=== PATIENT | male | born 1970 | race Two or more races ===

== ENCOUNTER 2016-10-09 11:13 | Emergency (ER) | payer SELFPAY ==
[~2016-10-09] VITALS: Ht 177.8 cm; Wt 70.3 kg
--- NOTE | 2016-10-09 15:31 | Emergency Room Report ---
History of Present Illness General Chief Complaint: Alcohol Intoxication Source: EMS Present Illness HPI This patient is brought in by EMS. This patient is homeless and has a history of alcohol abuse. He regularly presents to this hospital alcohol intoxication. Per EMS, they brought him to [facility] 2 days ago with alcohol intoxication. EMS report they know him really well. They state they try to switch between here at [facility] in [facility] to drop him off. Allergies: Coded Allergies: UNABLE TO ASSESS (Unverified , 10/09/16) Patient History Past Medical History: see triage record, other - ETOH intoxication Social History: Reports: alcohol use Reviewed Nursing Documentation: PMH: Agreed, PSxH: Agreed Nursing Documentation-PMH Past Medical History: Deferred Review of Systems All Other Systems: limited Physical Exam Vital Signs Date Time Temp Pulse Resp B/P Pulse Ox O2 Delivery O2 Flow Rate FiO2 10/09/16 11:05 97.9 18 18 121/68 99 Room Air Sp02 EP Interpretation: reviewed, normal General Appearance: no apparent distress, non-toxic, Stupor Head: normocephalic, other - periorbital ecchymosis L kory-orbital skin with different colors c/w healing/old wound. Eyes: bilateral eye PERRL, bilateral eye normal inspection ENT: hearing grossly normal, normal pharynx, no angioedema Neck: full range of motion Respiratory: chest non-tender, lungs clear, normal breath sounds, speaking full sentences Cardiovascular #1: regular rate, rhythm, no edema Gastrointestinal: normal bowel sounds, soft, non-distended Rectal: deferred Musculoskeletal: normal range of motion, non-tender Neurologic: sensory intact, other - obtunded. Non-focal. Occassional moves all extremities appropriately. Sits up. Pulls sheets over his head. Refuses to give name. Skin: warm/dry, well hydrated, other - See HEENT exam Medical Decision Making Diagnostic Impression: Primary Impression: SDH (subdural hematoma) Additional Impressions: Alcohol abuse Alcohol intoxication ER Course This patient is well-known to [facility]. He is a homeless male who presents with alcohol intoxication. Initially I had planned on living this patient sleep off his alcohol. However, further evaluation and shows some evidence of ecchymoses that is within the last few days on his face. Therefore , I did obtain a head CT. There is evidence of a small subacute subdural hemorrhage. The patient overall is nonfocal on neurologic exam and moving all extremities with well-oriented movements. However, he is obtunded and intoxicated. He will be admitted for monitoring. Laboratory workup is pending at time of this dictation. This patient is turned over to Dr. Tavares. Please see his addendum. See chart for labs. CT/MRI/US Diagnostic Results CT/MRI/US Diagnostic Results : Imaging Test Ordered: CT head Impression Impression: Positive for small left parietal convexity subacute subdural hematoma this measures 4 mm in thickness, does not result in any significant mass effect. Frontal cortical volume loss, somewhat advanced for age. Correlate with clinical history No significant mass effect or edema. Sinus disease. Evidence of prior sinus surgery Critical value findings discussed by phone with Dr. Martinez at the time of interpretation Last Vital Signs Date Time Temp Pulse Resp B/P Pulse Ox O2 Delivery O2 Flow Rate FiO2 10/09/16 11:05 97.9 18 18 121/68 99 Room Air Disposition: ADMITTED INPATIENT Condition: Stable Referrals: NOT CHOSEN TOAN/,REFERRING (PCP) MEME MARTINEZ D.O. Oct 09, 2016 15:31
--- NOTE | 2016-10-09 16:42 | Diagnostic Imaging Report ---
Indications: Altered metal status, history of head trauma Technique: Spiral acquisitions obtained through the brain. Angled axial and coronal 5 x 5 mm slices were reconstructed. Total dose length product 1004 and 60 mGycm. CTDI vol(s) 70 mGy Comparison: None Findings: There is slight widening of the extra-axial CSF spaces in the bilateral frontal regions. Best visible on the coronal views, there is suggestion of a 4 mm thick subdural hematoma in the high left parietal convexity. This is slightly higher attenuation than CSF, lower in attenuation than whelan matter. This does not cause any significant mass effect Ventricles and extra-axial CSF spaces otherwise within normal limits. No evidence of significant extra cranial soft tissue injury. Intact calvarium area visualized orbits are unremarkable. There is bilateral sinus disease. There is evidence of prior right maxillary sinus surgery. Impression: Positive for small left parietal convexity subacute subdural hematoma this measures 4 mm in thickness, does not result in any significant mass effect. Frontal cortical volume loss, somewhat advanced for age. Correlate with clinical history No significant mass effect or edema. Sinus disease. Evidence of prior sinus surgery Critical value findings discussed by phone with Dr. Park at the time of interpretation The CT scanner at [facility] is accredited by the [employer] and the scans are performed using protocols designed to limit radiation exposure to as low as reasonably achievable to attain images of sufficient resolution adequate for diagnostic evaluation.
[2016-10-09] MEDS ORDERED: levETIRAcetam 500 MG in D5W 110 ML IVPB ONE (16:45)
[2016-10-09] MEDS ORDERED: levETIRAcetam 500mg vial IV ONE (17:19)
[2016-10-09 17:55] LABS: BASOPHILS % (AUTO) 0.8 % (0.0-2.0); LYMPHOCYTES % (AUTO) 46.7 % (20.0-45.0); MEAN CORPUSCULAR HEMOGLOBIN 35.6 PG (27.0-31.0); MEAN CORPUSCULAR HGB CONC 34.9 G/DL (32.0-36.0); MEAN CORPUSCULAR VOLUME 102 FL (80-99); MEAN PLATELET VOLUME 6.8 FL (6.5-10.1); MONOCYTES % (AUTO) 6.2 % (1.0-10.0); NEUTROPHILS % (AUTO) 45.3 % (45.0-75.0); PLATELET COUNT 166 K/UL (150-450); RED BLOOD COUNT 3.36 M/UL (4.70-6.10); RED CELL DISTRIBUTION WIDTH 13.8 % (11.6-14.8); WHITE BLOOD COUNT 4.9 K/UL (4.8-10.8)
[2016-10-09 18:03] LABS: ALANINE AMINOTRANSFERASE 39 U/L (3-41); ALBUMIN/GLOBULIN RATIO 1.3 (1.0-2.7); ANION GAP 19 (5-15); ASPARTATE AMINO TRANSFERASE 51 U/L (5-40); CALCIUM 8.3 mg/dL (8.6-10.2); CARBON DIOXIDE 25 mEQ/L (20-30); CHLORIDE 103 mEQ/L (98-107); CREATININE 0.9 mg/dL (0.7-1.2); GLOMERULAR FILTRATION RATE > 60 mL/min (>60); HEMOLYSIS 3; POTASSIUM 3.9 mEQ/L (3.4-4.9); SODIUM 147 mEQ/L (135-145); TOTAL PROTEIN 6.7 g/dL (6.6-8.7)
[2016-10-09 18:26] VITALS: BP 101/63
[2016-10-09 20:39] VITALS: BP 114/74
[2016-10-09 20:41] VITALS: BP 114/74
== END 2016-10-09 20:42 | disposition short-term general hospital (02) ==
LOC: EDBD 11:13 → EMR 11:29
DX: S06.5X0A Traumatic subdural hemorrhage without loss of consciousness, initial encounter (principal); F10.129 Alcohol abuse with intoxication, unspecified; Z59.0 Homelessness; X58.XXXA Exposure to other specified factors, initial encounter; Y92.9 Unspecified place or not applicable; Y99.8 Other external cause status
CPT/HCPCS: 36415; 70450; 80053; 85025; 85610; 85730; 96360; 99285; J1953